=== PATIENT | male | born 1960 | race Two or more races ===

== ENCOUNTER 2024-03-10 09:49 | Emergency (ER) | payer OTHER ==
[~2024-03-10] VITALS: Ht 170.2 cm; Wt 109.1 kg
[~2024-03-10 09:49] MED LIST: LOSA-382 PO
[2024-03-10 09:50] VITALS: BP 168/92; PULSE 87; RESP 16; TEMP 98.4
[2024-03-10] MEDS ORDERED: LOSA-382 PO (10:35)
== END 2024-03-10 10:50 | disposition home or self-care (01) ==
LOC: EMS 09:49
DX: I10 Essential (primary) hypertension (principal); Z76.0 Encounter for issue of repeat prescription
CPT/HCPCS: 99281; Z7502

== ENCOUNTER 2024-05-09 10:53 | Emergency (ER) | payer OTHER ==
[~2024-05-09] VITALS: Ht 170.2 cm; Wt 113.2 kg
[2024-05-09 10:54] VITALS: PULSE 84; RESP 18; TEMP 98.5; O2SAT 96
[2024-05-09] MEDS ORDERED: AMLO-257 PO ×2 (10:57→15:59)
[2024-05-09] MEDS: AmLODIPine BESYLATE 10 MG TABLET PO ONE (13:25)
[2024-05-09] MEDS: LOSARTAN POTASSIUM 50 MG TABLET PO ONE (15:17)
[2024-05-09 15:50] VITALS: BP 165/101
[2024-05-09] MEDS ORDERED: LOSA-382 PO (15:59)
== END 2024-05-09 16:08 | disposition home or self-care (01) ==
LOC: EMS 11:14
DX: I10 Essential (primary) hypertension (principal); Z76.0 Encounter for issue of repeat prescription; Z79.899 Other long term (current) drug therapy
CPT/HCPCS: 99283

== ENCOUNTER 2024-05-22 14:39 | Emergency (ER) | payer BC, OTHER ==
[~2024-05-22] VITALS: Ht 170.2 cm; Wt 109.1 kg
[~2024-05-22 14:39] MED LIST changes: +AMLO-257 PO
[2024-05-22 14:48] VITALS: TEMP 98.8
[2024-05-22] MEDS: LIDOCAINE/PF 1% 2 ML VIAL IM ONE (16:09)
[2024-05-22] MEDS: CefTRIAXone SODIUM 1 GM/VIAL IM ONE (16:09)
[2024-05-22] MEDS: BACITRACIN 0.9 GM PACKET OINTMENT TP ONE (16:09)
[2024-05-22 16:15] LABS: BASOPHILS % (AUTO) 0.6 % (0.0-2.0); EOSINOPHILS % (AUTO) 9.5 % (1.0-6.0); HEMATOCRIT 42.8 % (41-53); HEMOGLOBIN 14.2 g/dL (13.5-17.5); LYMPHOCYTES # (AUTO) 2.5 K/uL (1.0-4.8); LYMPHOCYTES % (AUTO) 24.3 % (22.0-44.0); MEAN CORPUSCULAR HEMOGLOBIN 29.4 pg (26.0-34.0); MEAN CORPUSCULAR HGB CONC 33.1 G/dL (31.0-37.0); MEAN CORPUSCULAR VOLUME 89 fL (80-100); MONOCYTES % (AUTO) 9.9 % (2.0-9.0); NEUTROPHILS # (AUTO) 5.6 K/uL (1.8-7.7); NEUTROPHILS % (AUTO) 55.7 % (40.0-70.0); PLATELET COUNT (AUTO) 256 K/uL (150-450); RED BLOOD CELL COUNT(AUTO) 4.83 MIL/uL (4.50-5.90); RED CELL DISTRIBUTION WIDTH 14.2 % (11.5-14.5); WHITE BLOOD COUNT (AUTO) 10.1 K/uL (4.5-11.0)
[2024-05-22 16:23] LABS: ANION GAP 7 mmol/L (8-16); CALCIUM, TOTAL 8.9 mg/dL (8.8-10.5); CARBON DIOXIDE 30 mmol/L (22-29); CHLORIDE 100 mmol/L (98-107); CREATININE 0.86 mg/dL (0.60-1.30); GLOMERULAR FILTR. RATE CALC > 60 mL/min (>60); GLUCOSE,RANDOM 94 mg/dL (70-110); POTASSIUM 3.9 mmol/L (3.5-5.1); SODIUM SERUM 137 mmol/L (136-145); UREA NITROGEN, BLOOD 17 mg/dL (7-18)
[2024-05-22 16:40] VITALS: BP 153/92; PULSE 77; RESP 16; O2SAT 100
[2024-05-22] MEDS ORDERED: CEPH-558 PO (17:23)
[2024-05-22] MEDS ORDERED: DOXY-354 PO (17:23)
== END 2024-05-22 17:32 | disposition home or self-care (01) ==
LOC: EMS 14:39
DX: S80.811A Abrasion, right lower leg, initial encounter (principal); L03.115 Cellulitis of right lower limb; I10 Essential (primary) hypertension; I87.2 Venous insufficiency (chronic) (peripheral); Z79.899 Other long term (current) drug therapy; W21.01XA Struck by football, initial encounter; Y93.66 Activity, soccer; Y92.89 Other specified places as the place of occurrence of the external cause; Y99.8 Other external cause status
CPT/HCPCS: 99285; 93971; 80048; 85025; 36415; 96372; J0696; J3490

== ENCOUNTER 2024-11-19 10:17 | Emergency (ER) | payer OTHER, MEDICARE ==
[~2024-11-19] VITALS: Ht 170.2 cm; Wt 112.7 kg
[~2024-11-19 10:17] MED LIST changes: +CEPH-558 PO; +DOXY-354 PO
[2024-11-19 10:24] VITALS: BP 174/83; PULSE 87; RESP 18; TEMP 97.9; O2SAT 95
[2024-11-19] MEDS ORDERED: AMOX-457 PO (10:33)
[2024-11-19] MEDS ORDERED: ACET-3385 PO (10:33)
[2024-11-19] MEDS: AMOX TR/POT CLAV 875 MG/125 MG TABLET PO ONE (10:35)
[2024-11-19] MEDS: ALBUTEROL SULFATE HFA 90 MCG/PUFF 8 GM INHALER IH ONE (10:35)
== END 2024-11-19 10:50 | disposition home or self-care (01) ==
LOC: EMS 10:21
DX: J01.90 Acute sinusitis, unspecified (principal); I10 Essential (primary) hypertension; Z79.899 Other long term (current) drug therapy; Z20.822 Contact with and (suspected) exposure to COVID-19
CPT/HCPCS: 99283; J3535